=== PATIENT | female | born 1980 | race Two or more races ===

== ENCOUNTER 2021-02-12 06:14 | Day surgery (SDC) | payer OTHER ==
[2021-02-12] MEDS ORDERED: PERCOCET 5-3251 EACH PO (10:22)
== END 2021-02-12 13:00 | disposition home or self-care (01) ==
LOC: CIR.AMB 06:14
PROVIDERS: ATTEND Surgery
DX: C73 Malignant neoplasm of thyroid gland (principal); Z20.822 Contact with and (suspected) exposure to COVID-19